=== PATIENT | female | born 1975 | race Two or more races ===

== ENCOUNTER 2017-05-30 10:35 | Emergency (ER) | payer MEDICAID ==
[~2017-05-30] VITALS: Ht 165.1 cm; Wt 91.6 kg
[2017-05-30 10:39] VITALS: BP 137/88
[2017-05-30] MEDS ORDERED: HYDROcodone-ACET 10/325MG TAB PO ONE (11:15)
== END 2017-05-30 12:17 | disposition home or self-care (01) ==
LOC: ER 10:35
DX: S30.0XXA Contusion of lower back and pelvis, initial encounter (principal); S09.90XA Unspecified injury of head, initial encounter; X58.XXXA Exposure to other specified factors, initial encounter; Y93.89 Activity, other specified; Y92.89 Other specified places as the place of occurrence of the external cause; Y99.8 Other external cause status
CPT/HCPCS: 70450; 72131; 81025

== ENCOUNTER 2018-10-29 12:04 | Emergency (ER) | payer MEDICAID ==
[~2018-10-29] VITALS: Ht 165.1 cm; Wt 106.6 kg
[2018-10-29 12:51] VITALS: BP 127/77
== END 2018-10-29 13:59 | disposition home or self-care (01) ==
LOC: ER 12:04
DX: R05 Cough (principal); R09.81 Nasal congestion
CPT/HCPCS: 71046; 81025